=== PATIENT | female | born 1985 | race Caucasian/White ===

== ENCOUNTER 2021-04-29 15:44 | Emergency (ER) | payer OTHER, MEDICAID ==
[~2021-04-29] VITALS: Ht 165.1 cm; Wt 54.4 kg
[2021-04-29 17:01] LABS: ABSOLUTE BASOPHILS 0.1 thou/uL (0.0-0.2); ABSOLUTE EOSINOPHILS 0.2 thou/uL (0.0-0.7); ABSOLUTE LYMPHOCYTES 1.9 thou/uL (0.8-5.3); ABSOLUTE MONOCYTES 0.3 thou/uL (0.0-1.2); ABSOLUTE NEUTROPHILS 3.3 thou/uL (1.6-8.1); BASOPHILS 0.9 %; EOSINOPHILS 3.7 %; HEMATOCRIT 38.1 % (37.0-47.0); HEMOGLOBIN 13.1 gm/dL (12.0-15.0); LYMPHOCYTES 32.9 %; MCH 33.9 pg (26.0-34.0); MCHC 34.5 g/dL (28.0-37.0); MCV 98.3 fL (80.0-100.0); MONOCYTES 5.9 %; NUCLEATED RBCS 0 /100WBC; PLATELET COUNT* 185 thou/uL (150-400); POLYS 56.6 %; RBC 3.88 mil/uL (4.20-5.00); RDW-CV 13.6 % (10.5-14.5); WBC 5.8 thou/uL (4.0-11.0)
[2021-04-29 17:20] LABS: ALBUMIN 3.9 g/dL (3.4-5.0); CALCIUM 8.5 mg/dL (8.5-10.1); CREATININE 0.8 mg/dL (0.6-1.3); POTASSIUM 4.2 mmol/L (3.5-5.1); TOTAL BILIRUBIN 0.3 mg/dL (<0.1-1.0); TOTAL PROTEIN 6.9 g/dL (6.4-8.2)
[2021-04-29 17:52] VITALS: BP 128/69
--- NOTE | 2021-04-30 11:59 | EKG ---
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 : 1985 Requested By: Ivan Alegria Order Number: [id number] MD: Dinesh Nichols Measurements Intervals [place] Rate: 64 P: 78 AK: 142 QRS: 81 QRSD: 79 T: 74 QT: 398 QTc: 411 Interpretive Statements Sinus rhythm Probable left atrial enlargement septal infarct, age indeterminate Electronically Signed On 04-30-2021 11:59:13 CDT by Dinesh Nichols [email or web address] <ELECTRONICALLY SIGNED> By: Dinesh Nichols MD, [facility] 04/30/21 1159 1617 161 Dinesh Nichols MD, [facility] /EPI
--- NOTE | 2021-04-30 14:42 | EKG ---
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 : 1985 Requested By: Ivan Alegria Order Number: [id number] MD: Dinesh Nichols Measurements Intervals [place] Rate: 73 P: 70 DC: 136 QRS: 83 QRSD: 82 T: 74 QT: 386 QTc: 426 Interpretive Statements Sinus rhythm Probable left atrial enlargement ST elev, probable normal early repol pattern No previous ECG available for comparison Electronically Signed On 04-30-2021 14:42:15 CDT by Dinesh Nichols [email or web address] <ELECTRONICALLY SIGNED> By: Dinesh Nichols MD, [facility] 04/30/21 1442 1552 1552 Dinesh Nichols MD, [facility] /EPI
== END 2021-04-29 17:53 | disposition home or self-care (01) ==
LOC: M.ERS 15:44
PROVIDERS: Physician Assistant
DX: R07.89 Other chest pain (principal); Z88.5 Allergy status to narcotic agent